=== PATIENT | male | born 1955 | race Caucasian/White ===

== ENCOUNTER → 2024-04-30 | Outpatient (CLI) | payer MEDICARE ==
[~2024-04-30] MED LIST: AMLO-257 PO; METO-409 PO; RIVA20TA PO; TORS20TA4 PO
== END | disposition home or self-care (01) ==
LOC: SHCH 14:16
PROVIDERS: ATTEND Student in an Organized Health Care Education/Training Program
DX: R60.0 Localized edema (principal)
CPT/HCPCS: 93925; 93970